=== PATIENT | male | born 1985 | race Two or more races ===

== ENCOUNTER 2025-10-04 14:09 | Emergency (ER) | payer MEDICAID, OTHER ==
[~2025-10-04] VITALS: Ht 185.4 cm; Wt 97.4 kg
[2025-10-04 14:11] VITALS: BP 165/106; PULSE 83; RESP 18; TEMP 98; O2SAT 95
--- NOTE | 2025-10-04 17:36 | ED.PDOC ---
Eye-HPI HPI Comments 39 y.o male presents to the ED for an evaluation of swelling to the right side of his cheek that he noted yesterday. Patient does note slight discomfort with jaw and has pain to bottom tooth on palpation. He denies any difficulty swallowing, fever, chills, or drainage. Chief Complaint: Tooth Pain Time Seen by MD: 17:00 Reviewed Notes: Nurses Notes, Medications, Allergies Allergies: Coded Allergies: NO KNOWN ALLERGIES (Unverified , 10/04/25) Information Source: Patient Mode of Arrival: Ambulatory Timing: Hours Duration: Since onset Quality: Pain Mouth: Right Associated signs and symptoms: Tooth Pain Past Medical History PAST MEDICAL HISTORY: HTN Past Medical History (Other): leaky valve Surgical History: Denies all surgeries Family History Family History: Reviewed,noncontributory to illness Social History Smoker: Non-Smoker Alcohol: Denies ETOH Use Drugs: Denies Drug Use Lives In: Home Constitutional: denies: chills, diaphoresis, fatigue, fever, malaise, sweats, weakness, others EENTM: reports: others (right sided cheek swelling ); denies: blurred vision, double vision, ear bleeding, ear discharge, ear drainage, ear pain, ear ringing, eye pain, eye redness, hearing loss, mouth pain, mouth swelling, nasal discharge, nose bleeding, nose congestion, nose pain, photophobia, tearing, throat pain, throat swelling, voice changes Respiratory: denies: cough, hemoptysis, orthopnea, SOB at rest, shortness of breath, SOB with excertion, stridor, wheezing, others Cardiovascular: denies: chest pain, dizzy spells, diaphoresis, Dyspnea on ex ertion, edema, irregular heart beat, left arm pain, lightheadedness, palpitations, PND, syncope, others Gastrointestinal: denies: abdomen distended, abdominal pain, blood streaked bowels, constipated, diarrhea, dysphagia, difficulty swallowing, hematemesis, melena, nausea, poor appetite, poor fluid intake, rectal bleeding, rectal pain, vomiting, others Genitourinary: denies: burning, dysuria, flank pain, frequency, hematuria, incontinence, penile discharge, penile sore, pain, testicle pain, testicle swelling, urgency, others Neurological: denies: dizziness, fainting, headache, left sided numbness, left sided weakness, numbness, paresthesia, pre-existing deficit, right sided numbness, right sided weakness, seizure, speech problems, tingling, tremors, weakness, others Musculoskeletal: denies: back pain, gout, joint pain, joint swelling, muscle pain, muscle stiffness, neck pain, others Integumetry: denies: bruises, change in color, change in hair/nails, dryness, laceration, lesions, lumps, rash, wounds, others Allergic/Immunocompromised: denies: Difficulty Healing, Frequent Infections, Hives, Itching, others Hematologic/Lymphatic: denies: anemia, blood clots, easy bleeding, easy bruising, swollen glands, others Endocrine: denies: excessive hunger, excessive sweating, excessive thirst, excessive urination, flushing, intolerance to cold, intolerance to heat, unexplained weight gain, unexplained weight loss, others Psychiatric: denies: anxiety, bipolar disorder, depression, hopeless, panic disorder, schizophrenia, sleepless, suicidal, others All Other Systems: Reviewed and Negative Physical Exam General Appearance: No Apparent Distress, Normal HEENT: Other (Mild swelling to the right cheek. No erythema. Second right lower molar with mild tenderness to palpation upon tapping. No surrounding erythema to the gingiva. No visible abscess.) Neck: Normal Inspection Respiratory: No Respiratory Distress, Normal Breath Sounds Cardiovascular: No Edema, No JVD, No Murmur, No Gallop, Normal Peripheral Pulses, Regular Rate/Rhythm Breast Exam: Deferred Gastrointestinal: No Organomegaly, No Pulsatile Mass, Normal Bowel Sounds Genitalia: Deferred Pelvic: Deferred Rectal: Deferred Extremities: Normal inspection Neurologic: Alert, Normal Affect Cerebellar Function: Normal Reflexes: Normal Skin: Dry, Normal Color, Warm Lymphatic: NOT DONE Was a procedure done? Was a procedure done?: No EENT DIFF Eye: N/A Other Differential Diagnosis Tooth abscess, tooth infection X-Ray, Labs, Meds, VS Vital Signs Date Time Temp Pulse Resp B/P (MAP) Pulse Ox O2 Delivery O2 Flow Rate FiO2 10/04/25 14:11 98.0 83 18 165/106 95 98.0 Patient here with very mild right cheek swelling. And mild tooth pain. Tenderness to palpation 2 seconds right lower molar. No abscess visible on my examination. At this time I have discharged him with the amoxicillin. I advised him to monitor and return to the ER if symptoms worsen or persist. Advised him to follow up with the dentist. Patient agreeable. No evidence of cellulitis at this time. Time of 1ST Reevaluation: 17:00 Reevaluation 1ST: Unchanged Patient Education/Counseling: Diagnosis, Treatment, Prognosis Family Education/Counseling: No Family Present SEPSIS Sepsis Screen Date sepsis recognized/suspect: Oct 04, 2025 Time Sepsis recognized/suspect: 1412 Recent Procedure: No On Antibiotic Therapy: No Respiratory Rate >20: No Heart Rate >90: No Temp<36 C (96.8 F) or >38.3 C: No SBP <90 or MAP <65 mmHG: No New Acute Mental Status Change: No Is the patient on CPAP, BIPAP,: No Vital Signs Date Time Temp Pulse Resp B/P (MAP) Pulse Ox O2 Delivery O2 Flow Rate FiO2 10/04/25 14:11 98.0 83 18 165/106 95 98.0 Departure 1 Departure Time of Disposition: 17:34 Impression: Primary Impression: Infected tooth Additional Impression: Cheek swelling Disposition: HOME / SELF CARE / HOMELESS Condition: Stable Written Prescriptions Return back to the ER if symptoms worsen or persist. Please follow up with the dentist. e-Prescriptions Amoxicillin Trihydrate (Amoxicillin) 875 Mg Tab 1 TAB PO BID, #20 TAB Prov: DAHIANA VILLARREAL MD 10/04/25 Discharged With: Self Critical Care Note Critical Care Time?: No Stability Stability form required: No I personally scribed for DAHIANA VILLARREAL MD ([email or web address]) on 10/04/25 at 17:35. Electronically submitted by Riya Huitron ([facility]). DAHIANA VILLARREAL MD Oct 04, 2025 17:35
[2025-10-04] MEDS ORDERED: AMOX875T3 PO (17:40)
== END 2025-10-04 19:51 | disposition home or self-care (01) ==
LOC: ER 14:09
DX: K04.7 Periapical abscess without sinus (principal); I10 Essential (primary) hypertension